=== PATIENT | female | born 1985 | race Caucasian/White ===

== ENCOUNTER 2016-06-23 16:22 | Emergency (ER) | payer BC ==
[2016-06-23 16:32] VITALS: TEMP 98.3; BMI 20.1
[2016-06-23] MEDS ORDERED: METHYLPREDNISOLONE 125 MG/2 ML VIAL IV ONE (16:35)
[2016-06-23] MEDS ORDERED: Albuterol/Ipratropium Neb 3 ML NEB NEB ONE (16:35)
[2016-06-23] MEDS ORDERED: ONDANSETRON HCL 4 MG/2 ML VIAL IV ONE (16:35)
--- NOTE | 2016-06-23 16:38 | EDPRACDOC ---
- General Information Chief Complaint: Flu-Like Symptoms Stated Complaint: SHOB HEAVINESS IN CHEST CONGESTION Time Seen by Provider: 06/23/16 16:30 Information Source: Patient Mode Of Arrival: Car Home Medications: Home Medications Acetaminophen with Codeine [TYLENOL WITH CODEINE; [employer] with Codeine] 10 ml PO Q6H PRN #120 ml 06/23/16 Ondansetron HCl [Zofran] 4 mg PO Q8H PRN #15 tab 06/23/16 Prednisone [Deltasone, Orasone] 20 mg PO DAILY #20 tab 06/23/16 - History of Present Illness Onset: 12 days HPI: Pt c/o productive cough, congestion, sore throat x 12 days. Went to urgent care yesterday and was given levaquin. Pt states today sob, chest heaviness, nausea. Denies earache, changes in bowel or bladder, rash. Shortness of Breath: Mild Relevant History: Reports: Asthma Cough: Reports: Productive Rhinorrhea: Reports: Clear Ear Symptoms: Reports: None SOB Worsens with: Reports: Exertion, Movement SOB Improves with: Reports: Inhaler Associated Signs and symptoms: Reports: Cough, Fever, Nasal Symptoms, Sore Throat, Nausea ED Past Medical History - History Reviewed Yes Nurses notes reviewed and agree except as marked - Patient Medical History Respiratory History: Reports: Asthma (as child) Psychological History: Denies: Depression Systemic History: Denies: Cancer Surgical History: Denies: Hysterectomy - Social Medical History Smoking Status: Heavy tobacco smoker (5 or more cigarettes/day or daily pipe/ cigar) ETOH: None Substance Abuse: None EDM Review of Systems - Review of Systems Constitutional: Fever Ears: No Symptoms Reported. negative: Pain, Hearing Loss, Drainage, Ear Pulling Throat: Pain Nose: Congestion Mouth: No Symptoms Reported. negative: Pain, Drooling Respiratory: Cough, Shortness of Breath Cardiovascular: Chest Pain Gastrointestinal: Nausea Genitourinary: No Symptoms Reported. negative: Dysuria, Hematuria, Frequency, Discharge, Bleeding, Testicular Pain, Neurological: No Symptoms Reported. negative: Headache, Dizziness, Seizure, Numbness, Weakness, Speech Difficulty, Gait Difficulty Musculoskeletal: No Symptoms Reported. negative: Neck, Chestwall, Ribs, Back, Shoulder, Arm, Elbow, Forearm, Wrist, Hand, Pelvis, Hip, Femur, Knee, Leg, Ankle , Foot Integumentary: No Symptoms Reported. negative: Itching, Rash, Bruising, Wound Allergic/Immunologic: No Symptoms Reported. negative: Hives, Itching Hematologic: No Symptoms Reported. negative: Lymphadenopathy, Easy Bruising, Easy Bleeding Psychiatric: No Symptoms Reported. negative: Anxiety, Depression, Hallucinations, Insomnia, Suicidal - Physical Exam Constitutional: Alert Oriented to: Time, Person, Place Last recorded Vital Signs: Last Vital Signs Temp 98.3 F 06/23/16 16:28 Pulse 93 06/23/16 16:28 Resp 20 06/23/16 16:28 BP 149/72 06/23/16 16:28 Pulse Ox 100 06/23/16 16:28 Oxygen Pulse Oxygen Saturation 100 O2 Device Room Air Oxygen Flow Rate Fraction of Inspired Oxygen ( FIO2) - HEENT Head: Normal ( normocephalic) Eye Exam: Normal (PERRL, EOMI, Sclera white) Oropharynx: Normal (Pharynx:Moist without exudate,Gums-no swelling) Tympanic Membrane: Normal ENT EAC: Normal TMJ: Normal Nose: Congestion Neck: Normal (FROM, trachea at midline) - Respiratory/Cardiovascular Respiratory: Normal - CTA (BBS clear to auscultation without adventitious sounds ) Cardiovascular: Normal (RRR without murmur, gallop or rub) - GI Auscultation: Normal (NABS) Palpation: Normal (Soft,No rebound or guarding, non distended) Tenderness: Non tender - Musculoskeletal Back: Normal (Non-Tender) Extremities: Normal (Normal tone, Pulses 2+ No cyanosis or edema, FROM) - Integumentary Skin: Normal, Warm, Dry Lymphatics: Normal (no adenopathy) - Neurologic Memory Impaired: Normal Motor Function: Normal (Normal tone, Pulses 2+ No cyanosis or edema, FROM) Mood Description: Normal Perception: Normal ED SOB MDM - Differential Diagnosis Differential Diagnosis: Asthma, Pulmonary Embolus, Pnuemonia, URI - Results Result Diagrams: 06/23/16 16:52 06/23/16 16:52 Results: 06/23/16 17:41 Laboratory Results - last 24 hr 06/23/16 06/23/16 06/23/16 16:52 16:52 16:52 WBC 6.8 RBC 4.25 Hgb 13.3 Hct 38.7 MCV 91 MCH 31.3 MCHC 34.3 RDW 12.0 Plt Count 301 MPV 7.1 L Neut % (Auto) 55.2 Lymph % (Auto) 30.6 [place] % (Auto) 10.5 H Eos % (Auto) 2.3 Baso % (Auto) 1.4 Absolute Neuts (auto) 3.74 Absolute Lymphs (auto) 2.04 D-Dimer Quant (PE/DVT) 320 Sodium 138 Potassium 3.9 Chloride 104 Carbon Dioxide 26 Anion Gap 12 BUN 15 Creatinine 0.80 Estimated GFR (MDRD) > 60 Glucose 94 Calculated Osmolality 267 L Calcium 9.1 Total Bilirubin 0.5 AST 19 ALT 23 Alkaline Phosphatase 76 Total Protein 6.8 Albumin 4.0 Urine Color Urine Clarity Urine pH Ur Specific [place] Urine Protein Urine Glucose (UA) Urine Ketones Urine Occult Blood Urine Nitrite Urine Bilirubin Urine Urobilinogen Ur Leukocyte Esterase Urine RBC Urine WBC Ur Epithelial Cells Urine Bacteria Urine Mucus Urine Test 06/23/16 06/23/16 16:55 16:55 WBC RBC Hgb Hct MCV MCH MCHC RDW Plt Count MPV Neut % (Auto) Lymph % (Auto) [place] % (Auto) Eos % (Auto) Baso % (Auto) Absolute Neuts (auto) Absolute Lymphs (auto) D-Dimer Quant (PE/DVT) Sodium Potassium Chloride Carbon Dioxide Anion Gap BUN Creatinine Estimated GFR (MDRD) Glucose Calculated Osmolality Calcium Total Bilirubin AST ALT Alkaline Phosphatase Total Protein Albumin Urine Color Yellow Urine Clarity Clear Urine pH 7.0 Ur Specific [place] 1.015 Urine Protein 1+ H Urine Glucose (UA) Neg Urine Ketones Neg Urine Occult Blood Neg Urine Nitrite Neg Urine Bilirubin Neg Urine Urobilinogen <2.0 Ur Leukocyte Esterase Trace H Urine RBC 0-2 Urine WBC 0-2 Ur Epithelial Cells 3+ Urine Bacteria Few Urine Mucus Occ Urine Test Neg - EKG EKG #1 EKG Time: 16:42 Rate: bpm: 60 Aneta: Normal Rhythm: NSR Block: None ST: Nonsp Comments: no old ekg - Diagnostic Imaging Chest Image interpreted by: Radiologist Diagnostic Imaging Comments: IMPRESSION: No active cardiopulmonary disease. Decision Time to Discharge: 17:41 - Departure Disposition: Home Condition: Good Final Diagnosis: Acute bronchitis, Acute upper respiratory infection Instructions: Acute Bronchitis (ED), Upper Respiratory Infection (ED) Education/Counseling Given To: Patient Education/Counseling Given Regarding: Diagnosis, Treatment, Follow Up Referrals: None,No Provider [Primary Care Provider] - One Week Charlie Decker MD [Staff Physician] - One Week Prescriptions: New Acetaminophen with Codeine [TYLENOL WITH CODEINE; [employer] with Codeine] 10 ml PO Q6H PRN #120 ml PRN Reason: Cough Ondansetron HCl [Zofran] 4 mg PO Q8H PRN #15 tab PRN Reason: Nausea/Vomiting Prednisone [Deltasone, Orasone] 20 mg PO DAILY #20 tab Additional Instructions: Albuterol MDI 1-2 puffs every 4-6 hours as needed for shortness of breath. Continue Levaquin as previously directed. Return for worse or different symptoms.
[2016-06-23 17:05] LABS: AUTOMATED BASOPHIL 1.4 % (0-2); AUTOMATED EOSINOPHIL 2.3 % (0-5); AUTOMATED LYMPH 30.6 % (17-44); AUTOMATED MONOCYTE 10.5 % (3-10); AUTOMATED NEUTROPHIL 55.2 % (45-76); MPV 7.1 fL (7.4-10.4)
[2016-06-23 17:07] VITALS: BP 108/59; PULSE 62
[2016-06-23 17:11] LABS: LEUKOCYTES/URINE TRACE (NEGATIVE); NITRITE/URINE NEG (NEGATIVE); RBC/URINE 0-2 (0-5); URINE OCCULT BLOOD NEG (NEG/TRACE); WBC/URINE 0-2 (0-5)
--- NOTE | 2016-06-23 17:24 | DIRPT ---
CLINICAL DATA: Shortness of breath. Productive cough, congestion, sore throat for 12 days. Patient was given Levaquin yesterday. Chest heaviness today. EXAM: CHEST 2 VIEW COMPARISON: None. FINDINGS: The heart size and mediastinal contours are within normal limits. Both lungs are clear. The visualized skeletal structures are unremarkable. IMPRESSION: No active cardiopulmonary disease. Electronically Signed By: María Smith M.D. On: 06/23/2016 17:21
[2016-06-23 17:27] LABS: BLOOD UREA NITROGEN 15 MG/DL (7-17); CALCIUM 9.1 MG/DL (8.4-10.2); CALCULATED OSMOLALITY 267 MOs/Kg (270-290); CHLORIDE 104 mEq/L (98-107); GLUCOSE 94 mg/dL (70-99); SODIUM LEVEL 138 mEq/L (137-146); TOTAL PROTEIN 6.8 G/DL (6.3-8.2)
[2016-06-23] MEDS ORDERED: ALBUTEROL 6.7 GM MDI INH ONE (17:41)
== END 2016-06-23 17:57 | disposition home or self-care (01) ==
LOC: ED 16:22 → EDMC 17:57
DX: J20.9 Acute bronchitis, unspecified (principal); J06.9 Acute upper respiratory infection, unspecified
CPT/HCPCS: 36415; 71020; 80053; 81001; 81025; 85025; 85379; 93005; 94640; 96374; 96375; 99283; J2405; J2930; J3490; J7620